=== PATIENT | female | born 1995 | race Caucasian/White ===

== ENCOUNTER 2017-06-20 08:54 | Inpatient (IN) | payer BC ==
[~2017-06-20] VITALS: Ht 160 cm; Wt 66.1 kg
[2017-06-20] VITALS (8 sets, daily range): BP systolic 91–99; BP diastolic 61–71; PULSE 93–110; TEMP 98.5–99.8
[2017-06-20] MEDS ORDERED: JUNEL FE 1/20 21 TAB PO (09:43)
[2017-06-20 09:45] LABS: HEMATOCRIT 37.3 % (37.0-47.0); HEMOGLOBIN 12.5 g/dl (12.5-16.0); MEAN CELL VOLUME 89 fl (80.0-100.0); MEAN CORPUSCULAR HEMOGLOBIN 30 pg (27.0-31.0); MEAN CORPUSCULAR HGB CONC 34 g/dl (33.0-37.0); MEAN PLATELET VOLUME 9.9 fl (7.4-10.4); PLATELET COUNT 304 K/mm3 (130-400); RED BLOOD COUNT 4.21 M/mm3 (4.10-5.30); REDCELL DISTRIBUTION WIDTH-CV 11.1 % (11.5-14.5)
[2017-06-20 09:51] LABS: ALBUMIN 3.4 gm/dL (3.5-5.0); BILIRUBIN,TOTAL 0.4 mg/dL (0.0-1.0); CALCIUM 9.1 mg/dL (8.4-10.2); CREATININE, serum 0.72 mg/dL (0.52-1.25); POTASSIUM 3.8 mmol/L (3.4-5.0); TOTAL PROTEIN 7.1 gm/dL (6.4-8.2)
[2017-06-20 11:39] LABS: BAND 1 % (0-10); BASOPHIL 1 % (0-2); EOSINOPHIL 1 % (0-4); LYMPHOCYTE 20 % (20.0-51.0); NEUTROPHILS 70 % (42.0-75.2)
[2017-06-20 11:40] LABS: PLATELET ESTIMATE NORMAL (NORMAL)
[2017-06-20 22:41] LABS: COLLECTION METHOD CLEAN CATCH
[2017-06-20 22:58] LABS: MUCOUS Present /lpf; PH 6 (5-8); SQUAMOUS EPITHELIAL 0-2 /hpf; URINE APPEARANCE Clear; URINE BACTERIA None Seen /hpf; URINE BILIRUBIN Negative (NEGATIVE); URINE BLOOD 2+ (NEGATIVE); URINE COLOR Yellow; URINE GLUCOSE Negative (NEGATIVE); URINE KETONE 1+ (NEGATIVE); URINE LEUKOCYTE ESTERASE Negative (NEGATIVE); URINE NITRATE Negative (NEGATIVE); URINE PROTEIN(semi-quant) Negative (NEGATIVE); URINE UROBILINOGEN Negative (NEGATIVE)
[2017-06-21 00:01] VITALS: BP 91/63; PULSE 86; TEMP 98.5
[2017-06-21 04:16] VITALS: BP 91/64; PULSE 85; TEMP 98.2
[2017-06-21 07:46] VITALS: BP 99/65; PULSE 77; TEMP 97.6
[2017-06-21 11:11] VITALS: BP 101/72; PULSE 90; TEMP 98.8
== END 2017-06-21 16:19 | disposition home or self-care (01) | DRG 603 ==
LOC: COL.ER 08:54 → SURG 10:52
PROVIDERS: Nurse Practitioner; Surgery
PROC: 0J9B30Z Drainage of Perineum Subcutaneous Tissue and Fascia with Drainage Device, Percutaneous Approach (ICD-10-PCS; principal; 2017-06-20 15:00)
DX: L02.214 Cutaneous abscess of groin (principal)
CPT/HCPCS: J1170; J2270; J2405; J2543; J2704; J3010; J7030; J7120; Q9967